=== PATIENT | female | born 1995 | race Caucasian/White ===

== ENCOUNTER 2018-05-15 14:14 | Emergency (ER) | payer BC, OTHER ==
[2018-05-15] MEDS: DIAZEPAM 5 MG TAB PO (15:58)
[2018-05-15] MEDS: KETOROLAC 30 MG INJ IM (15:58)
[2018-05-15 16:14] LABS: ADD UMIC NO; UR ASCORBIC ACID NEGATIVE (NEGATIVE); UR BILIRUBIN (Dip) NEGATIVE (NEGATIVE); UR BLOOD (Dip) NEGATIVE (NEGATIVE); UR CLARITY SLIGHTLY CLOUDY (CLEAR); UR COLOR YELLOW (YELLOW); UR GLUCOSE (Dip) NEGATIVE (NEGATIVE); UR KETONES (Dip) NEGATIVE (NEGATIVE); UR LEUKOCYTE ESTERASE (Dip) NEGATIVE Leu/ul (NEGATIVE); UR MUCUS FEW /HPF (NONE SEEN); UR NITRITE (Dip) NEGATIVE (NEGATIVE); UR RBC 3 /HPF (0-5); UR SQUAMOUS EPITHELIAL CELL FEW /HPF (FEW); UR TOTAL PROTEIN (Dip) NEGATIVE (NEGATIVE); UR UROBILINOGEN (Dip) NEGATIVE (NEGATIVE); UR WBC 3 /HPF (0-5)
== END 2018-05-15 17:04 | disposition home or self-care (01) ==
LOC: FTE 14:14
DX: M54.5 Low back pain (principal)
CPT/HCPCS: 72100; 72220; 81001; 81003; 81025; 96372; 99284-25

== ENCOUNTER 2018-12-14 20:53 | Emergency (ER) | payer BC, OTHER ==
[2018-12-14] MEDS: LORAZEPAM 1 MG TAB PO (22:55)
[2018-12-14 23:04] LABS: URINE PH (Dip) POC 5.5 (5.0-8.5)
[2018-12-14 23:04] LABS: URINE BLOOD (Dip) POC Negative (NEGATIVE); URINE GLUCOSE (Dip) POC Negative (NEGATIVE); URINE KETONES (Dip) POC Negative (NEGATIVE); URINE LEUKOCYTE EST (Dip) POC 1+ (NEGATIVE); URINE NITRITE (Dip) POC Negative (NEGATIVE); URINE TOTAL PROTEIN POC Negative (NEGATIVE)
[2018-12-14] MEDS: DEXAMETHASONE 10 MG/ML 1 ML INJ IM (23:05)
[2018-12-14] MEDS: KETOROLAC 60 MG INJ IM (23:11)
== END 2018-12-14 23:55 | disposition home or self-care (01) ==
LOC: FTE 23:55
DX: M54.40 Lumbago with sciatica, unspecified side (principal)
CPT/HCPCS: 81003; 81025; 96372; 99284-25

== ENCOUNTER 2018-12-17 19:34 | Emergency (ER) | payer BC, OTHER | END 2018-12-17 22:25 | disposition home or self-care (01) | LOC: FTE 22:25 | DX: M54.5 Low back pain (principal) | CPT/HCPCS: 99283 ==